=== PATIENT | male | born 1990 | race African-American/Black ===

== ENCOUNTER 2017-11-24 16:44 | Emergency (ER) | payer MEDICAID, OTHER ==
[2017-11-24 17:05] VITALS: BP 156/102
[2017-11-24] MEDS ORDERED: Naproxen TAB* 250 MG PO ONE (17:20)
--- NOTE | 2017-11-24 17:27 | UC ---
Dental HPI - HPI Summary HPI Summary: 27-year-old male presents with 3 day history of left upper dental pain. States a couple weeks ago filling fell out of tooth. Initially no pain however has progressively worsening pain of the last 3 days. Denies fever, chills, facial swelling, trismus, or drainage. He has a dentist appointment scheduled at [facility], [place] in December. - History of Current Complaint Chief Complaint: UCDentalProblem Stated Complaint: TOOTH ACHE Time Seen by Provider: 11/24/17 17:14 Hx Obtained From: Patient Onset/Duration: Gradual Onset Severity: Moderate Pain Intensity: 8 Aggravating Factor(s): Chewing Alleviating Factor(s): Nothing Related History: Previous Dental Care on Same Tooth Dental: 1 - Absent filling with open cavity. Mild gingival erythema. No induration, fluctuance, or drainage. - Allergies/Home Medications Allergies/Adverse Reactions: Allergies Allergy/AdvReac Type Severity Reaction Status Date / Time No Known Allergies Allergy Verified 11/24/17 17:06 Home Medications: Home Medications Ibuprofen TAB* [Advil TAB*] 200 mg PO Q6H PRN 11/24/17 [History Confirmed ] PMH/Surg Hx/FS Hx/Imm Hx Previously Healthy: Yes - Denies significant PMH - Surgical History Surgical History: Yes Surgery Procedure, Year, and Place: tonsillectomy - Family History Family History: Noncontributory - Social History Occupation: Employed Full-time Lives: With Family Alcohol Use: None Substance Use Type: None Smoking Status (MU): Never Smoked Tobacco Review of Systems Constitutional: Negative ENT: Dental Pain Respiratory: Negative Cardiovascular: Negative Is Patient Immunocompromised?: No All Other Systems Reviewed And Are Negative: Yes Physical Exam Triage Information Reviewed: Yes Appearance: Well-Appearing, Well-Nourished, Pain Distress - appears mildly uncomfortable Vital Signs: Initial Vital Signs Temp 99.0 F 11/24/17 17:01 Pulse 75 11/24/17 17:01 Resp 16 11/24/17 17:01 BP 156/102 11/24/17 17:01 Pulse Ox 100 11/24/17 17:01 Vital Signs Reviewed: Yes Eyes: Positive: Conjunctiva Clear. Negative: Discharge ENT: Positive: Pharynx normal, Dental tenderness - #13 - See diagram, Uvula midline, Other - No facial swelling, trismus, or TMj tenderness, crepitus, or clicking Neck: Positive: Supple, Nontender, No Lymphadenopathy Respiratory: Positive: Lungs clear, Normal breath sounds, No respiratory distress Cardiovascular: Positive: RRR, No Murmur Neurological: Positive: Alert Skin Exam: Normal Dental Complaint Course/Dx - Course Course Of Treatment: 27-year-old male presents with 3 day history of left upper dental pain. Absent filling with open cavity to #13 and mild gingival erythema. Will treat with 10 day course of Augmentin, naproxen for pain, and saline rinses. Patient is to schedule dental appointment next available. Warning symptoms reviewed with patient. Verbalizes understanding. Agrees with POc. - Differential Dx/Diagnosis Differential Diagnosis/Dx: Dental Abscess, Dental Caries, Fractured Tooth, Odontogenic Pain Provider Diagnoses: Dental pain, elevated blood pressure reading Discharge - Sign-Out/Discharge Documenting (check all that apply): Patient Departure All imaging exams completed and their final reports reviewed: No Studies - Discharge Plan Condition: Stable Disposition: HOME Prescriptions: Amoxicillin/Clavulanate TAB* [Augmentin TAB 875*] 875 mg PO BID #20 tab Naproxen [Naproxen 500 mg tab] 500 mg PO Q12HR PRN #30 tablet PRN Reason: Pain Patient Education Materials: Toothache (ED) Referrals: No Primary Care Phys,NOPCP [Primary Care Provider] - Additional Instructions: Start Augmentin 1 tablet twice a day for 10 days. Take with food to avoid upset stomach. Be sure to take the entire prescription even if you are feeling better. Take naproxen 1 tablet every 12 hours as needed for pain. Take with food to avoid upset stomach. Use salt water rinses after every meal that bedtime. Make an appointment to follow up with the dentist at the next available appointment. Your blood pressure was elevated in the clinic today. It is recommended that you follow up with a primary care provider within 4 weeks to have this rechecked. Seek immediate medical attention if you develop any fever greater than 100.5 F, you are unable to open your mouth, you have any difficulty swallowing, difficulty breathing, or any worsening of symptoms. - Billing Disposition and Condition Condition: STABLE Disposition: Home
== END 2017-11-24 17:40 | disposition home or self-care (01) ==
LOC: UCEAST 16:44
DX: K08.89 Other specified disorders of teeth and supporting structures (principal); R03.0 Elevated blood-pressure reading, without diagnosis of hypertension
CPT/HCPCS: 99202; A9270-GY; G0463

== ENCOUNTER 2017-11-27 17:11 | Emergency (ER) | payer OTHER ==
[2017-11-27 17:43] VITALS: BP 127/80
--- NOTE | 2017-11-27 18:26 | UC ---
Dental HPI - HPI Summary HPI Summary: This patient is a 27 year old M presenting to [facility] accompanied by his mother with a chief complaint of tooth pain that began 3 days ago and is getting worse. Pt was seen in the 3 days ago given abx and pain medication. Since then he has also had swelling in the left upper cheek and his dentist appointment is the 14th of next month. The patient rates the pain 10/10 in severity. - History of Current Complaint Chief Complaint: UCDentalProblem Stated Complaint: TOOTH ACHE Time Seen by Provider: 11/27/17 18:16 Hx Obtained From: Patient Onset/Duration: Still Present Severity: Severe Pain Intensity: 10 Pain Scale Used: 0-10 Numeric Alleviating Factor(s): Nothing Related History: Swelling - Allergies/Home Medications Allergies/Adverse Reactions: Allergies Allergy/AdvReac Type Severity Reaction Status Date / Time No Known Allergies Allergy Verified 11/27/17 17:42 PMH/Surg Hx/FS Hx/Imm Hx Previously Healthy: Yes Other History Of: Negative For: Hepatitis C, Anticoagulant Therapy - Surgical History Surgical History: Yes Surgery Procedure, Year, and Place: tonsillectomy - Family History Known Family History: Positive: Hypertension - Social History Lives: With Family Alcohol Use: None Substance Use Type: Marijuana Smoking Status (MU): Never Smoked Tobacco Review of Systems Constitutional: Negative - fever ENT: Dental Pain, Other - facial swelling All Other Systems Reviewed And Are Negative: Yes Physical Exam - Summary Physical Exam Summary: VITAL SIGNS: Reviewed. GENERAL: Patient is a well-developed and nourished male who is lying comfortable in the stretcher. Patient is not in any acute respiratory distress. HEAD AND FACE: Normocephalic EYES: PERRLA, EOMI x 2. EARS: Hearing grossly intact. MOUTH: swelling in the left side of the face. No lip or tongue swelling NECK: Supple, trachea is midline, no adenopathy, no JVD, no carotid bruit. CHEST: Symmetric, no tenderness at palpation LUNGS: Clear to auscultation bilaterally. No wheezing or crackles. CVS: Regular rate and rhythm, S1 and S2 present, no murmurs or gallops appreciated. ABDOMEN: Soft, non-tender. Bowel sounds are normal. No abdominal abnormal pulsations. EXTREMITIES: Full ROM in all major joints, no edema, no cyanosis or clubbing. NEURO: Alert and oriented x 3. No acute neurological deficits. Speech is normal and follows commands. SKIN: Dry and warm Triage Information Reviewed: Yes Vital Signs: Initial Vital Signs Temp 99.3 F 11/27/17 17:37 Pulse 74 11/27/17 17:37 Resp 18 11/27/17 17:37 BP 127/80 11/27/17 17:37 Pulse Ox 100 11/27/17 17:37 Vital Signs Reviewed: Yes Dental Complaint Course/Dx - Course Course Of Treatment: Patient is a 27-year-old male presents to the urgent care with a chief complaint of dental pain. Patient was awaiting antibiotics and pain medication however he has noticed that he has developed some left-sided facial swelling. The patient has a cavity in tooth #1 and he seems that the symptoms are getting a bit worse. The patient has an appointment with [facility]. Therefore, he was recommended to follow-up with the dentist as soon as possible. The patient understands and agrees. The patient is a have any trismus, swelling of the tongue, swelling of the lips or any other difficulty swallowing. He is hemodynamically stable alert and oriented 3. - Differential Dx/Diagnosis Differential Diagnosis/Dx: Dental Abscess, Dental Caries, Gingivitis, Herminio's Angina Provider Diagnoses: Dental pain. Dental abscess Discharge - Sign-Out/Discharge Documenting (check all that apply): Patient Departure All imaging exams completed and their final reports reviewed: No Studies - Discharge Plan Condition: Stable Disposition: HOME Patient Education Materials: Dental Abscess (ED), Toothache (ED) Forms: *School Release Referrals: [facility] [Outside] No Primary Care Phys,NOPCP [Primary Care Provider] - Additional Instructions: Take medications as instructed and adhere to plan Take Acetaminophen or ibuprofen for pain or fever Increase your fluid intake. Patient will follow-up with dentist at the [facility]. Return to the or go to the emergency department if symptoms worsen Follow-up with primary care physician in next 2-3 days - Billing Disposition and Condition Condition: STABLE Disposition: Home - Attestation Statements Document Initiated by Scribe: Yes Documenting Scribe: Gerson Teran Provider For Whom Saloibe is Documenting (Include Credential): Chance Nunn MD Scribe Attestation: Gerson Lira , scribed for Chance Nunn MD on 11/27/17 at 1839. Saloibe Documentation Reviewed: Yes Provider Attestation: The documentation as recorded by the saloibe, Gerson Teran accurately reflects the service I personally performed and the decisions made by me, Chance Nunn MD
== END 2017-11-27 18:42 | disposition home or self-care (01) ==
LOC: UCEAST 17:11
DX: K04.7 Periapical abscess without sinus (principal); K08.89 Other specified disorders of teeth and supporting structures
CPT/HCPCS: 99211; G0463

== ENCOUNTER 2018-12-11 10:35 | Emergency (ER) | payer OTHER ==
[2018-12-11 13:04] VITALS: BP 121/77
--- NOTE | 2018-12-11 13:24 | UC ---
Abdominal Pain Female HPI - History of Current Complaint Chief Complaint: UCAbdominalPain Stated Complaint: ABDOMINAL PAIN, AND NAUSEA Time Seen by Provider: 12/11/18 13:13 Hx Obtained From: Patient Pain Intensity: 3 Allergies/Adverse Reactions: Allergies Allergy/AdvReac Type Severity Reaction Status Date / Time No Known Allergies Allergy Verified 12/11/18 10:56 Home Medications: Home Medications NK [No Home Medications Reported] 12/11/18 [History Confirmed 12/11/18] PMH/Surg Hx/FS Hx/Imm Hx Other History Of: Negative For: Hepatitis C, Anticoagulant Therapy - Surgical History Surgical History: Yes Surgery Procedure, Year, and Place: Tonsillectomy - Family History Known Family History: Positive: None, Hypertension - Social History Alcohol Use: Rare Substance Use Type: None Smoking Status (MU): Never Smoked Tobacco - Immunization History Most Recent Tetanus Shot: UNKNOWN Physical Exam Vital Signs: Initial Vital Signs Temp 98.2 F 12/11/18 10:54 Pulse 66 12/11/18 10:54 Resp 16 12/11/18 10:54 BP 121/84 12/11/18 10:54 Pulse Ox 100 12/11/18 10:54 Discharge ED - Discharge Plan Referrals: No Primary Care Phys,NOPCP [Primary Care Provider] -
[2018-12-11] MEDS ORDERED: Al Hydrox/Mg Hydrox/Simet LIQ* 30 ML UDC PO ONE (13:31)
--- NOTE | 2018-12-11 13:33 | UC ---
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 He has had one small loose stool today. Ate jerk chicken yesterday, but this is not unusual for him. Persistent acid taste in his mouth. He has not had food or fluids today--came straight here. No meds taken. No hx of reflux. No caffeine, alcohol minimal 1-2 x per month. - History of Current Complaint Chief Complaint: UCAbdominalPain Stated Complaint: ABDOMINAL PAIN, AND NAUSEA Time Seen by Provider: 12/11/18 13:13 Hx Obtained From: Patient Onset/Duration: Sudden Onset, Lasting Hours - about 12 Timing: Intermittent Episodes Lasting: - minutes Severity Initially: Moderate Severity Currently: Mild Pain Intensity: 3 Radiates: No Character: Cramping Aggravating Factor(s): Food - Allergies/Home Medications Allergies/Adverse Reactions: Allergies Allergy/AdvReac Type Severity Reaction Status Date / Time No Known Allergies Allergy Verified 12/11/18 10:56 PMH/Surg Hx/FS Hx/Imm Hx Previously Healthy: Yes Other History Of: Negative For: Hepatitis C, Anticoagulant Therapy - Surgical History Surgical History: Yes Surgery Procedure, Year, and Place: Tonsillectomy - Family History Known Family History: Positive: None - parents living and healthy, Non- Contributory - Social History Occupation: Employed Full-time Lives: Alone Alcohol Use: Rare Substance Use Type: None Smoking Status (MU): Never Smoked Tobacco - Immunization History Most Recent Tetanus Shot: UNKNOWN Review of Systems All Other Systems Reviewed And Are Negative: Yes Constitutional: Positive: Fatigue Skin: Positive: Negative Eyes: Positive: Negative ENT: Positive: Negative Respiratory: Negative: Shortness Of Breath, Cough Cardiovascular: Negative: Palpitations, Chest Pain Gastrointestinal: Positive: Abdominal Pain - epigastric, Diarrhea, Nausea Genitourinary: Positive: Negative Motor: Positive: Negative Neurovascular: Positive: Negative Musculoskeletal: Positive: Negative Neurological: Positive: Negative Psychological: Positive: Negative Is Patient Immunocompromised?: No Physical Exam Triage Information Reviewed: Yes Appearance: Well-Appearing, No Pain Distress Vital Signs: Initial Vital Signs Temp 98.2 F 12/11/18 10:54 Pulse 66 12/11/18 10:54 Resp 16 12/11/18 10:54 BP 121/84 12/11/18 10:54 Pulse Ox 100 12/11/18 10:54 Eye Exam: Normal ENT: Positive: Pharynx normal Neck: Positive: Supple, Nontender, No Lymphadenopathy Respiratory: Positive: Lungs clear, Normal breath sounds Cardiovascular: Positive: RRR, No Murmur Abdomen Description: Positive: No Organomegaly, Soft, Guarding - voluntary guarding with palpation of epigastrium. No rebound. No tenderness to liver edge.. Negative: Hepatomegaly Bowel Sounds: Positive: Present Male Genital Exam: Positive: No Hernia Musculoskeletal Exam: Normal Neurological: Positive: Alert, Muscle Tone Normal Psychological Exam: Normal Skin Exam: Normal - well hydrated, no tenting. Abd Pain Male Course/Dx - Course Course Of Treatment: antacids and zantac for treatment of gastritis. Might have viral etiology. Discussed hydration and eating. - Differential Dx/Clinical Impression Differential Diagnosis/HQI/PQRI: Other - gastritis, ulcer, gastroenteritis. Provider Diagnosis: Gastroenteritis Discharge ED - Sign-Out/Discharge Documenting (check all that apply): Patient Departure All imaging exams completed and their final reports reviewed: No Studies - Discharge Plan Condition: Good Disposition: HOME Prescriptions: raNITIdine HCl [Ranitidine HCl] 150 mg PO BID #30 capsule Patient Education Materials: Gastroenteritis (ED) Forms: *Work Release Referrals: No Primary Care Phys,NOPCP [Primary Care Provider] - Additional Instructions: It is most likely a viral illness which is causing the pain in your stomach. Eat lightly: I suggest clear fluids, soup, smoothies, easily digestible foods. Avoid fried and fatty foods and caffeine. Ensure increased fluids and water. You have been given an antacid, and the prescription for ranitidine will decrease the acid irritation of your stomach. If you have recurrent vomiting please go to the emergency room for further testing and evaluation. - Billing Disposition and Condition Condition: GOOD Disposition: Home
== END 2018-12-11 13:50 | disposition home or self-care (01) ==
LOC: UCEAST 10:35
DX: K52.9 Noninfective gastroenteritis and colitis, unspecified (principal)
CPT/HCPCS: 99212; A9270-GY; G0463

== ENCOUNTER 2019-04-09 09:19 | Emergency (ER) | payer OTHER ==
[2019-04-09 09:37] VITALS: BP 122/76
--- NOTE | 2019-04-09 10:14 | UC ---
Throat Pain/Nasal Lit HPI - HPI Summary HPI Summary: 29 yo male presents with flu-like symptoms. He tells me that yesterday he felt nauseous and vomited twice. [place] hot/cold all day, but did not take his temperature or have a documented fever. Today his body aches and he is having LLQ abdominal pain. He last vomited this morning at 0500. He is drinking water, but states is afraid to eat as he might vomit. Last BM was 2 days ago, which is unusual for him as he usually goes daily. Denies dysuria, SOB, chest pain, back pain. - History of Current Complaint Chief Complaint: UCGeneralIllness Stated Complaint: CHILLS BODYACHES SORE THROAT VOMITING Time Seen by Provider: 04/09/19 10:13 Hx Obtained From: Patient Onset/Duration: Sudden Onset Severity: Moderate Pain Intensity: 5 Pain Scale Used: 0-10 Numeric - Allergies/Home Medications Allergies/Adverse Reactions: Allergies Allergy/AdvReac Type Severity Reaction Status Date / Time No Known Allergies Allergy Verified 04/09/19 09:38 Home Medications: Home Medications Ondansetron ODT TAB* [Zofran 4 MG Odt TAB*] 4 mg PO Q8H PRN #12 tab.odt [Rx] PMH/Surg Hx/FS Hx/Imm Hx - Additional Past Medical History Additional PMH: None Other History Of: Negative For: Hepatitis C, Anticoagulant Therapy - Surgical History Surgical History: Yes Surgery Procedure, Year, and Place: Tonsillectomy - Family History Known Family History: Positive: Hypertension - Social History Lives: With Family Alcohol Use: Rare Substance Use Type: None Smoking Status (MU): Former Smoker - Immunization History Most Recent Tetanus Shot: UNKNOWN Review of Systems All Other Systems Reviewed And Are Negative: No Constitutional: Positive: Other - Body aches Skin: Positive: Negative Eyes: Positive: Negative ENT: Positive: Negative Respiratory: Positive: Negative Cardiovascular: Positive: Negative Gastrointestinal: Positive: Abdominal Pain, Vomiting, Nausea Genitourinary: Positive: Negative Motor: Positive: Negative Neurovascular: Positive: Negative Musculoskeletal: Positive: Negative Neurological/Mental Status: Positive: Negative Psychological: Positive: Negative Physical Exam - Summary Physical Exam Summary: GENERAL: NAD. WDWN. No pain distress. SKIN: No rashes, sores, or open wounds. HEENT: Head: AT/NC Eyes: PERRLA. EOM intact. Conjunctiva clear without inflammation or discharge. Ears: Hearing grossly normal. TMs intact, no bulging, erythema, or edema. Nose: Nasal mucosa pink and moist. NTTP maxillary and frontal sinus. Throat: Posterior oropharynx without exudates, erythema, or tonsillar enlargement. Uvula midline. NECK: Supple. Nontender. No lymphadenopathy. CHEST: CTAB. No r/r/w. No accessory muscle use. Breathing comfortably and in no distress. CV: RRR. Pulses intact. Brisk cap refill. ABDOMEN: Moderate LLQ ttp. Soft. No distention or guarding. No CVA tenderness. Bowel sounds present. NEURO: Alert. PSYCH: Age appropriate behavior. Triage Information Reviewed: Yes Vital Signs: Initial Vital Signs Temp 97.0 F 04/09/19 09:34 Pulse 73 04/09/19 09:34 Resp 18 04/09/19 09:34 BP 122/76 04/09/19 09:34 Pulse Ox 99 04/09/19 09:34 Laboratory Tests 04/09/19 04/09/19 04/09/19 10:03 10:22 10:37 POC Urine Color [place] POC Urine Clarity Cloudy POC Urine pH 5.5 POC Ur Specif [place] >= 1.030 POC Urine Protein 2+ A POC Ur Glucose (UA) Negative POC Urine Ketones 2+ A POC Urine Blood Trace-intact A POC Urine Nitrite Negative POC Urine Bilirubin 2+ A POC Urine Urobilinogen 1.0 POC U Leukocyte Esteras Negative Influenza A (Rapid) Negative Influenza B (Rapid) Negative Group A Strep Rapid Negative Vital Signs Reviewed: Yes Diagnostics - Radiology CT ab/pelv Radiology Interpretation Completed By: Radiologist Summary of Radiographic Findings: IMPRESSION: #. Normal appendix documented. No pathologic process of the alimentary tract evident. #. Negative for obstructive uropathy. #. Partial physiologic decompression of the IVC indicating lower intravascular volume state. Throat Pain/Nasal Course/Dx - Course Course Of Treatment: UA and CT as above. In the clinic, pt was given zofran and felt much better. He was drinking water and eating crackers. No episodes of vomiting in the clinic. Suspect viral illness. Advised to rest, drink plenty of fluids, and advance diet as tolerated. - Differential Dx/Diagnosis Provider Diagnosis: Viral syndrome Discharge ED - Sign-Out/Discharge Documenting (check all that apply): Patient Departure All imaging exams completed and their final reports reviewed: Yes - Discharge Plan Condition: Stable Disposition: HOME Prescriptions: Ondansetron ODT TAB* [Zofran 4 MG Odt TAB*] 4 mg PO Q8H PRN #12 tab.odt PRN Reason: Nausea Patient Education Materials: Gastroenteritis (ED) Forms: *Work Release Referrals: No Primary Care Phys,NOPCP [Primary Care Provider] - Additional Instructions: If you develop a fever, shortness of breath, chest pain, new or worsening symptoms - please call your PCP or go to the ED immediately. Rest and drink plenty of fluids. Slowly advance your diet as tolerated. I recommend starting with a BRAT diet ( bananas, rice, applesauce, toast) - Billing Disposition and Condition Condition: STABLE Disposition: Home
[2019-04-09 10:15] LABS: Influenza A Molecular Negative (Negative); Influenza B Molecular Negative (Negative)
[2019-04-09] MEDS ORDERED: Ondansetron ODT TAB* 4 MG SL ONE (10:30)
== END 2019-04-09 11:18 | disposition home or self-care (01) ==
LOC: UCEAST 09:19
DX: B34.9 Viral infection, unspecified (principal); R11.2 Nausea with vomiting, unspecified; J02.9 Acute pharyngitis, unspecified; R10.32 Left lower quadrant pain; Z87.891 Personal history of nicotine dependence
CPT/HCPCS: 74176; 81003; 87651; 99212; A9270-GY; G0463

== ENCOUNTER 2019-04-13 07:22 | Emergency (ER) | payer OTHER ==
[2019-04-13 07:35] VITALS: BP 126/77
--- NOTE | 2019-04-13 08:41 | UC ---
Skin Complaint HPI - HPI Summary HPI Summary: CHIEF COMPLAINT: buttocks pain. HPI: This is a 29 year old male with discomfort in the area of a previous pilonidal cyst at the superior margin of the buttocks cleft. Has become more uncomfortable over the past 3 days. Denies fever, discharge or radiating pain. Description of Pain: moderate, worse with touching. 7/10 pain. VITAL SIGNS REVIEWED. Within normal limits unless noted here. NURSES NOTE REVIEWED. " has hx pilonidal cyst. cyst started to come back 3 days ago. " - History of Current Complaint Chief Complaint: UCSkin Time Seen by Provider: 04/13/19 08:30 Stated Complaint: BACK PAIN Hx Obtained From: Patient Pain Intensity: 7 - Allergy/Home Medications Allergies/Adverse Reactions: Allergies Allergy/AdvReac Type Severity Reaction Status Date / Time No Known Allergies Allergy Verified 04/13/19 07:34 Home Medications: Home Medications Sulfamethox/Trimethoprim DS* [Bactrim DS 800/160 TAB*] 1 tab PO BID #20 tab MDD 2 04/13/19 [Rx] PMH/Surg Hx/FS Hx/Imm Hx Previously Healthy: Yes Neurological History: Migraine Other History Of: Negative For: Hepatitis C, Anticoagulant Therapy - Surgical History Surgical History: Yes Surgery Procedure, Year, and Place: Tonsillectomy - Family History Known Family History: Positive: None - parents living and healthy, Hypertension , Non-Contributory - Social History Occupation: Employed Part-time Alcohol Use: Occasionally Substance Use Type: None Smoking Status (MU): Former Smoker - Immunization History Most Recent Tetanus Shot: UNKNOWN Review of Systems All Other Systems Reviewed And Are Negative: Yes Constitutional: Positive: Negative Skin: Positive: Other - tender, indurated skin upper buttocks cleft Respiratory: Positive: Negative Cardiovascular: Positive: Negative Gastrointestinal: Positive: Negative Is Patient Immunocompromised?: No Physical Exam - Summary Physical Exam Summary: Appearance: The patient is well-appearing, is in no pain or distress, and is well-nourished. Eyes: Conjunctiva are clear. Pupils are equal and reactive to light and accommodation. Extra ocular muscle movement is intact. ENT: The hearing is grossly normal, the pharynx is normal, and the TMs are normal. There is no muffled or hoarse voice. No stridor. Neck: The neck is supple and there is no lymphadenopathy. Respiratory: The chest is non-tender to palpation and without crepitus. The lungs are clear, there are normal breath sounds, and there is no respiratory distress. No wheezes, rales or rhonchi. Cardiovascular: Heart sounds reveal a regular rate and rhythm. There are no clicks, rubs or murmurs. There are no carotid bruits or thrills. Circulation is grossly intact. Abdomen: The abdomen is soft and nontender. There is no organomegaly. Bowel sounds are present and within normal limits. No point tenderness at McBurneys point. No CVA tenderness. Musculoskeletal: Strength is intact. The patient moves all extremities. Neurological: The patient is alert. Motor and sensory are examination grossly intact. Speech is normal. Psychological: The patient displays age appropriate behavior, and is conversant. GCS=15. Skin: Negative for rashes. PILONIDAL CYST: superior aspect of buttocks cleft; 4 cm, indurated; localized cellulitis; no pointing abscess; evidence of previous I & D, thickened skin; tender to palpation. Triage Information Reviewed: Yes Vital Signs: Initial Vital Signs Temp 98.6 F 04/13/19 07:32 Pulse 80 04/13/19 07:32 Resp 14 04/13/19 07:32 BP 126/77 04/13/19 07:32 Pulse Ox 98 04/13/19 07:32 Vital Signs Reviewed: Yes Course/Dx - Course Course Of Treatment: This is a 29 year old male with discomfort in the area of a previous pilonidal cyst at the superior margin of the buttocks cleft. Has become more uncomfortable over the past 3 days. Denies fever, discharge or radiating pain. Localized pain 7/10, worse with touching and pressure. Hx of MRSA right thigh one year ago. Vital signs stable. Afebrile. Examination shows a 4 cm area of tenderness that is not pointing and below a healed incision from previous draining of pilonidal cyst. The area is indurated. There is localized cellulitis without extension. I discussed with the patient the need for definitive treatment because this is the third time this cyst has filled. Patient will follow up in two days with surgeon and use antibiotic and warm soaks to the area until then. Patient knows to go to ED for any increasing pain, swelling, or fever. Diagnosis is pilonidal cyst with localized cellulitis. The patient will be started on Bactrim DS, twice a day for 10 days. - Differential Diagnoses - Skin Complaint Differential Diagnoses: Abscess, Cellulitis, MRSA - Diagnoses Provider Diagnosis: Pilonidal cyst Discharge ED - Sign-Out/Discharge Documenting (check all that apply): Patient Departure All imaging exams completed and their final reports reviewed: No Studies - Discharge Plan Condition: Stable Disposition: HOME Prescriptions: Sulfamethox/Trimethoprim DS* [Bactrim DS 800/160 TAB*] 1 tab PO BID #20 tab MDD 2 Patient Education Materials: Pilonidal Cyst (ED), Cellulitis (DC) Forms: *Work Release Referrals: No Primary Care Phys,NOPCP [Primary Care Provider] - Additional Instructions: WE DISCUSSED: PLEASE SEEK CARE AT THE EMERGENCY DEPARTMENT IF SYMPTOMS WORSEN OR IF NEW SYMPTOMS DEVELOP. FOLLOW UP WITH YOUR PRIMARY CARE PHYSICIAN IF CONDITION CONTINUES BEYOND 3 DAYS WITHOUT IMPROVEMENT. YOUR DIAGNOSIS IS: pilonidal cyst, early abscess formation; possible localized cellulitis. YOUR PRESCRIPTION RECOMMENDATION IS: Septra DS 1 pill twice a day for 10 days OTHER INSTRUCTIONS: warm to hot moist soaks to the area. Sitting in a bathtub or use a wet washcloth. As we discussed, this kind of condition needs treatment by a surgeon to drain and close the cyst so it doesn't recur. However, if your condition worsens tonight or tomorrow go to the ER for possible drainage. Your cyst is not pointing at this time but it may start to drain on its own. If you develop a fever, also go to the emergency room. On Monday, call a surgeon for further evaluation and treatment. I have given you a work note.\\ Call us with any questions or concerns. FOR PAIN AND/OR SLEEP: For pain: Ibuprofen (Motrin and other brand names) 400-600mg PLUS acetaminophen (Tylenol and other brand names) 500mg - 1000mg every 8 hours. - Billing Disposition and Condition Condition: STABLE Disposition: Home
== END 2019-04-13 09:12 | disposition home or self-care (01) ==
LOC: UCEAST 07:22
DX: L05.91 Pilonidal cyst without abscess (principal); Z87.891 Personal history of nicotine dependence; G43.909 Migraine, unspecified, not intractable, without status migrainosus
CPT/HCPCS: 99212; G0463